=== PATIENT | female | born 1975 | race Two or more races ===

== ENCOUNTER 2018-06-23 18:34 | Emergency (ER) | payer OTHER ==
[~2018-06-23] VITALS: Ht 160 cm; Wt 81.6 kg
[2018-06-23] MEDS ORDERED: VENTOLIN HFA18 GM IH (19:17)
[2018-06-23] MEDS ORDERED: SINGULAIR10 MG PO (19:17)
[2018-06-23] MEDS ORDERED: SYNTHROID50 MCG PO (19:17)
[2018-06-23] MEDS ORDERED: SPIRIVA RESPIMAT4 G1 IH (19:18)
== END 2018-06-23 23:59 | disposition home or self-care (01) ==
LOC: ER 18:34
DX: G44.209 Tension-type headache, unspecified, not intractable (principal)